=== PATIENT | male | born 1965 | race Two or more races ===

== ENCOUNTER 2022-06-12 11:20 | Emergency (ER) | payer OTHER ==
[~2022-06-12] VITALS: Ht 175.3 cm; Wt 105.0 kg
[2022-06-12 12:06] VITALS: BP 150/70
[2022-06-12] MEDS ORDERED: HYDROcodone-ACET 10/325MG TAB PO ONE (13:15)
[2022-06-12] MEDS ORDERED: IBUP800T27 PO (13:16)
== END 2022-06-12 13:30 | disposition home or self-care (01) ==
LOC: ER 11:20
DX: S93.402A Sprain of unspecified ligament of left ankle, initial encounter (principal); S93.602A Unspecified sprain of left foot, initial encounter; Z79.1 Long term (current) use of non-steroidal anti-inflammatories (NSAID); W01.0XXA Fall on same level from slipping, tripping and stumbling without subsequent striking against object, initial encounter; Y93.89 Activity, other specified; Y92.89 Other specified places as the place of occurrence of the external cause; Y99.8 Other external cause status
CPT/HCPCS: 73610; 73630